=== PATIENT | female | born 1990 | race African-American/Black ===

== ENCOUNTER 2020-12-07 21:05 | Emergency (ER) | payer SELFPAY ==
--- NOTE | 2020-12-07 22:06 | ER ---
Nurse's Notes [facility] Name: Julio Wang Age: 30 yrs Sex: Female : 1990 Arrival Date: 12/07/2020 Time: 21:26 Bed 13 Private MD: Diagnosis: Acute pharyngitis Presentation: 12/07 21:40 Chief complaint: Patient states: Swelling in throat, pain when swallowing x 2 days; lp1 reports pain to right ear, denies drainage; Denies fever, cough, sob. Coronavirus screen: Client denies travel out of the [place] in the last 14 days. sore throat, Client presents with at least one sign or symptom that may indicate coronavirus-19. Ebola Screen: No symptoms or risks identified at this time. Initial Sepsis Screen: Does the patient meet any 2 criteria? No. Patient's initial sepsis screen is negative. Does the patient have a suspected source of infection? No. Patient's initial sepsis screen is negative. Risk Assessment: Do you want to hurt yourself or someone else? Patient reports no desire to harm self or others. Onset of symptoms was December 07, 2020. 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 - Social history:: Smoking status: Patient denies any tobacco usage or history of. Screenin:42 Abuse screen: Denies threats or abuse. Denies injuries from another. Nutritional lp1 screening: No deficits noted. Tuberculosis screening: No symptoms or risk factors identified. Fall Risk None identified. Assessment: 21:43 General: Appears in no apparent distress. Behavior is calm, cooperative, appropriate lp1 for age. Pain: Complains of pain in throat. Neuro: Level of Consciousness is awake, alert, obeys commands, Oriented to person, place, time, situation. Cardiovascular: Patient's skin is warm and dry. Respiratory: Airway is patent Respiratory effort is even, unlabored, Breath sounds are clear bilaterally. GI: No signs and/or symptoms were reported involving the gastrointestinal system. : No signs and/or symptoms were reported regarding the genitourinary system. EENT: Throat is reddened has enlarged tonsils. Derm: Skin is intact, Skin is dry, Skin is normal. Musculoskeletal: No deficits noted. Vital Signs: 21:40 BP 139 / 91; Pulse 96; Resp 18; Temp 98.9(O); Pulse Ox 100% on R/A; Weight 70.31 kg lp1 (R); Height 5 ft. 7 in. (170.18 cm); Pain 10/10; 21:40 Body Mass Index 24.28 (70.31 kg, 170.18 cm) lp1 ED Course: 21:26 Patient arrived in ED. cf2 21:32 Ramon Rodriguez [facility] 21:32 Bulmaro Crandall MD is Attending Physician. [facility] 21:42 Triage completed. lp1 21:42 Arm band placed on. lp1 21:43 Patient has correct armband on for positive identification. lp1 21:45 Strep swab sent to lab. lp1 22:18 No provider procedures requiring assistance completed. Patient did not have IV access lp1 during this emergency room visit. 22:38 Brittney Castelan, RN is Primary Nurse. lp1 Administered Medications: 22:18 Drug: Decadron 10 mg Route: IM; Site: left gluteus; lp1 22:38 Follow up: Response: No adverse reaction lp1 22:18 Drug: Augmentin 875 mg Route: PO; lp1 22:38 Follow up: Response: No adverse reaction 1 Outcome: 22:06 Discharge ordered by . [facility] 22:38 Discharged to home ambulatory. lp1 22:38 Condition: good 22:38 Discharge instructions given to patient, Instructed on discharge instructions, follow up and referral plans. medication usage, Demonstrated understanding of instructions, follow-up care, medications, Prescriptions given X 1. 22:39 Patient left the ED. lp1 Signatures: Ramon Rodriguez PA PA jmm Pena, Laura, RN RN lp1 Avis Hooks cf2
--- NOTE | 2020-12-07 22:07 | EDPHYS ---
Physician Documentation [facility] Name: Julio Wang Age: 30 yrs Sex: Female : 1990 Arrival Date: 12/07/2020 Time: 21:26 Bed 13 Private MD: ED Physician Bulmaro Crandall HPI: 12/07 22:03 This 30 yrs old Black Female presents to ER via Ambulatory with complaints of Neck jmm Swelling, THROAT SWELLING. 22:03 The patient presents with sore throat. Onset: The symptoms/episode began/occurred jmm gradually, 2 day(s) ago. Modifying factors: The symptoms are alleviated by nothing, the symptoms are aggravated by nothing. Associated signs and symptoms: Pertinent positives: earache. This is a 30 year old female with no chronic medical conditions that presents to the ED with complaints of right ear pain and sore throat for the past 2 days. Denies cough, vomiting. . 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 - Social history:: Smoking status: Patient denies any tobacco usage or history of. ROS: 22:03 Constitutional: Negative for fever, chills, and weight loss. jmm 22:03 Neck: Negative for injury, pain, and swelling, Cardiovascular: Negative for chest pain, palpitations, and edema, Respiratory: Negative for shortness of breath, cough, wheezing, and pleuritic chest pain, Abdomen/GI: Negative for abdominal pain, nausea, vomiting, diarrhea, and constipation, Back: Negative for injury and pain, Skin: Negative for injury, rash, and discoloration, Neuro: Negative for headache, weakness, numbness, tingling, and seizure, Psych: Negative for depression, anxiety, suicide ideation, homicidal ideation, and hallucinations. 22:03 ENT: Positive for ear pain, sore throat. 22:03 All other systems are negative. Exam: 22:03 Constitutional: This is a well developed, well nourished patient who is awake, alert, jmm and in no acute distress. Head/Face: atraumatic. Eyes: EOMI, no conjunctival erythema appreciated 22:03 Chest/axilla: Normal chest wall appearance and motion. Cardiovascular: Regular rate and rhythm. No edema appreciated Respiratory: Normal respirations, no respiratory distress appreciated Abdomen/GI: Non distended, soft Back: Normal ROM Skin: General appearance color normal MS/ Extremity: Moves all extremities, no obvious deformities appreciated, no edema noted to the lower extremities Neuro: Awake and alert, normal gait Psych: Behavior is normal, Mood is normal, Patient is cooperative and pleasant 22:03 ENT: Posterior pharynx: Airway: normal, Uvula: midline, erythema, that is moderate, exudate, that is moderate. 22:03 Neck: Lymph nodes: lymphadenopathy is appreciated, anterior cervical nodes. Vital Signs: 21:40 BP 139 / 91; Pulse 96; Resp 18; Temp 98.9(O); Pulse Ox 100% on R/A; Weight 70.31 kg lp1 (R); Height 5 ft. 7 in. (170.18 cm); Pain 10/10; 21:40 Body Mass Index 24.28 (70.31 kg, 170.18 cm) lp1 MDM: 22:05 Data reviewed: vital signs, nurses notes. Counseling: I had a detailed discussion with nabor the patient and/or guardian regarding: the historical points, exam findings, and any diagnostic results supporting the discharge/admit diagnosis, the need for outpatient follow up, to return to the emergency department if symptoms worsen or persist or if there are any questions or concerns that arise at home. ED course: Patient is alert and non toxic in appearance in the ED. No signs of resp distress. Patient is advised to follow up with pcp and otherwise given strict return precautions. Patient understood and agrees with the plan of care. . 22:06 Patient medically screened. nabor 12/07 21:44 Order name: Strep lp 12/07 21:44 Order name: Group A Streptococcus Rapid Sc; Complete Time: 22:32 EDMS Administered Medications: 22:18 Drug: Decadron 10 mg Route: IM; Site: left gluteus; lp1 22:38 Follow up: Response: No adverse reaction lp1 22:18 Drug: Augmentin 875 mg Route: PO; lp1 22:38 Follow up: Response: No adverse reaction lp1 Disposition: 12/08 06:53 Co-signature as Attending Physician, Bulmaro Crandall MD. [email or web address] Disposition: 12/07/20 22:06 Discharged to Home. Impression: Acute pharyngitis. - Condition is Stable. - Discharge Instructions: Pharyngitis. - Prescriptions for Augmentin 875- 125 mg Oral Tablet - take 1 tablet by ORAL route every 12 hours for 10 days; 20 tablet. - Medication Reconciliation Form, Thank You Letter, Antibiotic Education, Prescription Opioid Use, Work release form form. - Follow up: Private Physician; When: 2 - 3 days; Reason: Recheck today's complaints, Continuance of care, Re-evaluation by your physician. Signatures: Dispatcher [employer] EDMS Ramon Rodriguez PA PA jmm Pena, Laura, RN RN lp1 Bulmaro Crandall MD MD [email or web address] Corrections: (The following items were deleted from the chart) 12/07 22:39 22:06 12/07/2020 22:06 Discharged to Home. Impression: Acute pharyngitis. Condition is lp1 Stable. Forms are Medication Reconciliation Form, Thank You Letter, Antibiotic Education, Prescription Opioid Use. Follow up: Private Physician; When: 2 - 3 days; Reason: Recheck today's complaints, Continuance of care, Re-evaluation by your physician. nabor
[2020-12-07] MEDS ORDERED: dexAMETHasone 10 MG/ML VIAL ONE (22:27)
[2020-12-07] MEDS ORDERED: AMOX/K CLAV 875 MG TAB ONE (22:27)
[2020-12-07 22:52] VITALS: BP 139/91; TEMP 98.9; O2SAT 100
== END 2020-12-07 22:39 | disposition home or self-care (01) ==
LOC: ER 21:05
DX: J02.9 Acute pharyngitis, unspecified (principal)
CPT/HCPCS: 87081; 96372; 99283; J1100